=== PATIENT | female | born 1955 | race Caucasian/White ===

== ENCOUNTER 2016-03-22 20:11 | Emergency (ER) | payer OTHER ==
[~2016-03-22] VITALS: Ht 162.6 cm; Wt 85.3 kg
[~2016-03-22 20:11] MED LIST: ASPIRIN325 PO; ASPIRIN81 M2 PO; ESTRACE1 MG PO; ESTRODOL PO; FLEXERIL PO; FLUOXETINE HCL40 MG PO; HYDROCHLORIDE PO; HYDROCODON-ACE1 EAC5 PO; IBUPROFEN 200200 M1 PO; MORPHINE SULFAT15 M5 PO; MS CONTIN15 MG PO; NABUMETONE 500500 M1 PO; NAPROXEN SODIU220 M2 PO; NEURONTIN 300300 M1 PO; NEURONTIN 300M300 M2 PO; NORVASC 5 MG TAB5 MG PO; PROZAC40 MG PO; RELAFEN500 MG PO; REQUIP 1 MG TABL1 M1 PO; ROXICODONE5 M1 PO; VERAPAMIL ER240 M1 PO; VITAMIN D1000 UNI1 PO; WELLBUTRIN XL300 M2 PO; [UNRECOGNIZED DRUG - OTHER]
== END 2016-03-22 21:02 | disposition home or self-care (01) ==
LOC: ER 20:11
DX: S61.411A Laceration without foreign body of right hand, initial encounter (principal); F41.9 Anxiety disorder, unspecified; Z90.710 Acquired absence of both cervix and uterus; F17.210 Nicotine dependence, cigarettes, uncomplicated; F10.99 Alcohol use, unspecified with unspecified alcohol-induced disorder; W45.8XXA Other foreign body or object entering through skin, initial encounter; Y93.89 Activity, other specified; Y92.89 Other specified places as the place of occurrence of the external cause; Y99.8 Other external cause status

== ENCOUNTER → 2020-05-05 | Outpatient (CLI) | payer OTHER | LOC: SJCVCIMAG 09:06 | PROVIDERS: ATTEND Internal Medicine | DX: I08.2 Rheumatic disorders of both aortic and tricuspid valves (principal); I11.9 Hypertensive heart disease without heart failure; Z87.891 Personal history of nicotine dependence ==

== ENCOUNTER → 2021-04-09 | Outpatient (CLI) | payer OTHER | LOC: SJCVCIMAG 03-09 13:31 | PROVIDERS: ATTEND Internal Medicine | DX: I08.3 Combined rheumatic disorders of mitral, aortic and tricuspid valves (principal); I77.819 Aortic ectasia, unspecified site ==